=== PATIENT | female | born 1955 | race African-American/Black ===

== ENCOUNTER 2016-11-27 04:39 | Emergency (ER) | payer OTHER ==
[~2016-11-27] VITALS: Ht 165.1 cm; Wt 166.3 kg
[~2016-11-27 04:39] MED LIST: BENADRYL ALLERG25 MG PO; LISINOPRIL-HCT1 EAC3 PO; LOPRESSOR50 MG PO
[2016-11-27 05:36] LABS: CHLORIDE 111 mEq/L (99-109); HEMATOCRIT 35.8 % (36.0-46.0); MCH 24.3 PG (29.0-34.0); MCHC 30.7 G/DL (30.0-36.0); MEAN PLAT.VOLUME 10.2 uM^3 (9.5-12.4); PLATELET COUNT 278 K/uL (156-360); POTASSIUM 4.1 mEq/L (3.7-5.4); RBC DIS.WIDTH-SD 43.2 % (39-53); RED BLOOD COUNT 4.53 M/uL (3.80-5.20); SODIUM 143 mEq/L (136-147); WHITE BLOOD COUNT 6.9 K/uL (4.1-10.2)
[2016-11-27 05:38] LABS: GLUCOSE 107 mg/dL (70-99)
[2016-11-27 05:40] LABS: ANION GAP 10 MEQ/L (2-14); TOTAL BILIRUBIN 0.4 mg/dL (0.0-1.0)
[2016-11-27 05:42] LABS: ALKALINE PHOSPHATASE 132 IU/L (3-129); GFR ESTIMATE (CALCULATED) > 59 mL/min/
[2016-11-27 05:43] LABS: TROP-I INTERPRETATION NEGATIVE; TROPONIN-I < 0.01 ng/mL (0.0-0.30); UREA NITROGEN (BUN) 19 mg/dL (9-23)
[2016-11-27 05:44] LABS: DIRECT BILIRUBIN 0.2 mg/dL (0.0-0.3)
[2016-11-27 05:46] LABS: LIPASE 58 U/L (1.0-51.0)
[2016-11-27] MEDS ORDERED: TRAMADOL HCL50 MG PO (06:13)
[2016-11-27 06:25] VITALS: BP 163/87
== END 2016-11-27 06:26 | disposition home or self-care (01) ==
LOC: EME 04:39
DX: M94.0 Chondrocostal junction syndrome [Tietze] (principal); I10 Essential (primary) hypertension; R06.00 Dyspnea, unspecified; M25.511 Pain in right shoulder
CPT/HCPCS: 71020; 80048; 80076; 83690; 84484; 85027; 93005; 99281; 99284

== ENCOUNTER 2017-03-24 17:04 | Emergency (ER) | payer OTHER ==
[~2017-03-24] VITALS: Ht 162.6 cm; Wt 172.6 kg
[~2017-03-24 17:04] MED LIST changes: +TRAMADOL HCL50 MG PO
[2017-03-24 17:38] LABS: HEMATOCRIT 37.9 % (36.0-46.0); MCH 24.4 PG (29.0-34.0); MCHC 30.6 G/DL (30.0-36.0); MCV 79.6 FL (83-99); MEAN PLAT.VOLUME 10.2 uM^3 (9.5-12.4); PLATELET COUNT 290 K/uL (156-360); RBC DIS.WIDTH-CV 15.9 % (11.8-14.6); RBC DIS.WIDTH-SD 46.2 % (39-53); RED BLOOD COUNT 4.76 M/uL (3.80-5.20); WHITE BLOOD COUNT 5.6 K/uL (4.1-10.2)
[2017-03-24 17:48] LABS: CHLORIDE 108 mEq/L (99-109); POTASSIUM 4.6 mEq/L (3.7-5.4); SODIUM 141 mEq/L (136-147)
[2017-03-24 17:50] LABS: GLUCOSE 103 mg/dL (70-99)
[2017-03-24 17:51] LABS: ANION GAP 10 MEQ/L (2-14)
[2017-03-24 17:53] LABS: GFR ESTIMATE (CALCULATED) > 59 mL/min/
[2017-03-24 17:54] LABS: UREA NITROGEN (BUN) 20 mg/dL (9-23)
[2017-03-24 19:54] VITALS: BP 175/83
== END 2017-03-24 19:56 | disposition home or self-care (01) ==
LOC: EME 17:04
PROVIDERS: Nurse Practitioner Family
DX: R60.0 Localized edema (principal); M79.604 Pain in right leg; R23.8 Other skin changes; R79.1 Abnormal coagulation profile; I10 Essential (primary) hypertension
CPT/HCPCS: 71020; 80048; 85027; 85379; 93005; 93971; 99281; 99284